=== PATIENT | male | born 1965 | race Caucasian/White ===

== ENCOUNTER 2017-10-31 21:15 | Emergency (ER) | payer OTHER ==
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
[2017-10-31] MEDS ORDERED: Dexamethasone/Tobramycin 0.1-0.3% Ophth Susp 2.5 ML Bottle EYEBOTH SCH (22:45)
== END 2017-10-31 22:57 | disposition home or self-care (01) ==
LOC: DL.ED 21:15
DX: H10.13 Acute atopic conjunctivitis, bilateral (principal); Z79.899 Other long term (current) drug therapy; Z79.4 Long term (current) use of insulin
CPT/HCPCS: 99283; A9270